=== PATIENT | male | born 1995 | race Caucasian/White ===

== ENCOUNTER 2019-01-06 00:48 | Emergency (ER) | payer OTHER ==
[~2019-01-06] VITALS: Ht 172.7 cm; Wt 86.4 kg
[2019-01-06] MEDS ORDERED: DAYQ1LIQ PO (01:00)
[2019-01-06 01:11] LABS: BASO % 0.3 % (0.0-1.0); EOS % 0.6 % (0.0-3.0); HEMATOCRIT 44.5 % (42.0-52.0); HEMOGLOBIN 15.2 g/dl (13.5-17.5); LYMPH # 0.4 10^3/uL (1.5-6.5); LYMPH % 6.2 % (24.0-44.0); MEAN CORPUSCULAR HEMOGLOBIN 31.5 pg (27.0-33.0); MEAN CORPUSCULAR HGB CONC 34.2 g/dl (32.0-36.5); MEAN CORPUSCULAR VOLUME 92.1 fl (80.0-96.0); MONO # 0.7 10^3/uL (0.0-0.8); MONO % 10.8 % (0.0-5.0); NEUTROPHILS # 5.1 10^3/uL (1.8-7.7); NEUTROPHILS % 81.9 % (36.0-66.0); PLATELET COUNT, AUTOMATED 201 10^3/uL (150-450); RED BLOOD COUNT 4.83 10^6/uL (4.30-6.10); WHITE BLOOD COUNT 6.3 10^3/uL (4.0-10.0)
[2019-01-06] MEDS ORDERED: ACETAMINOPHEN TAB 650MG DOSE (2X325MG) PO ONE (01:15)
[2019-01-06 01:37] LABS: ALBUMIN 4.4 GM/DL (3.2-5.2); ALT/SGPT 33 U/L (12-78); BILIRUBIN,TOTAL 0.3 MG/DL (0.2-1.0); BLOOD UREA NITROGEN 10 MG/DL (7-18); CALCIUM LEVEL 8.7 MG/DL (8.5-10.1); CARBON DIOXIDE LEVEL 27 MEQ/L (21-32); CHLORIDE LEVEL 108 MEQ/L (98-107); CREATININE FOR GFR 1.26 MG/DL (0.70-1.30); GLOMERULAR FILTRATION RATE > 60.0 (>60); GLUCOSE, FASTING 97 MG/DL (70-100); POTASSIUM SERUM 3.6 MEQ/L (3.5-5.1); SODIUM LEVEL 142 MEQ/L (136-145); TOTAL PROTEIN 7.8 GM/DL (6.4-8.2)
[2019-01-06 01:44] LABS: INFLUENZA A AMPLIFICATION POSITIVE (NEGATIVE); INFLUENZA B AMPLIFICATION NEGATIVE (NEGATIVE)
[2019-01-06] MEDS ORDERED: NS 1,000 ML IV ONE ×2 (01:45→02:45)
[2019-01-06] MEDS ORDERED: KETOROLAC 30 MG/ML VIAL (J1885) IV ONE (02:45)
[2019-01-06] MEDS ORDERED: OSEL75CA PO (02:54)
[2019-01-06 03:00] VITALS: BP 100/69
[2019-01-06] MEDS ORDERED: ACETAMINOPHEN 500 MG TAB PO ONE (03:00)
[2019-01-06] MEDS ORDERED: ACETAMINOPHEN 325 MG TAB PO ONE (03:00)
[2019-01-06] MEDS ORDERED: OSELTAMIVIR PHOSPHATE 75 MG CAP (TAMIFLU) PO ONE (03:00)
--- NOTE | 2019-01-06 08:24 | REP ---
Clinical: Fever . Comparison: None . Technique: PA and lateral. Findings: The mediastinum and cardiac silhouette are normal. The lung palmer are clear and without acute consolidation, effusion, or pneumothorax. The skeletal structures are intact and normal. Impression: 1. No acute cardiopulmonary process. Electronically Signed by Koby Fisher MD 01/06/2019 08:15 A
== END 2019-01-06 03:48 | disposition home or self-care (01) ==
LOC: M ED 00:48
DX: B34.9 Viral infection, unspecified (principal); J09.X2 Influenza due to identified novel influenza A virus with other respiratory manifestations
CPT/HCPCS: 36415; 71046; 80053; 83605; 85025; 87040; 87077; 87186; 87502; 87880; 96374; 99285; J1885